=== PATIENT | male | born 1985 | race Caucasian/White ===

== ENCOUNTER → 2020-03-10 07:57 | Outpatient (BNVA) | payer OTHER, SELFPAY | PROVIDERS: Visit Provider Internal Medicine ==

== ENCOUNTER 2020-12-20 08:37 | Outpatient (REF) | payer OTHER, SELFPAY ==
[2020-12-20 09:40] LABS: Estimated Average Glucose 174 mg/dL; Hemoglobin A1c % 7.7 %
[2020-12-20 09:50] LABS: Alanine Aminotransferase 19 U/L (0-40); Albumin Level 4.6 g/dL (3.5-5.0); Alkaline Phosphatase 71 U/L (39-117); Anion Gap 10 (12-20); Aspartate Amino Transferase 25 U/L (5-37); Bilirubin Total 0.5 mg/dL (0.0-1.0); Blood Urea Nitrogen 15 mg/dL (9-16); Calcium 9.6 mg/dL (8.4-10.2); Carbon Dioxide 32 mmol/L (22-29); Chloride 103 mmol/L (96-108); Cholesterol 232 mg/dL; Creatinine Urine 179.95 mg/dL; Estimated Glomerular Filt Rate > 60; Glucose Random 135 mg/dL (60-115); HDL Cholesterol 46 mg/dL; LDL Cholesterol Calculated 165 mg/dl; Potassium 4.9 mmol/L (3.3-5.1); Sodium 140 mmol/L (135-145); Total Protein 7.2 g/dL (6.5-8.0); Triglycerides 107 mg/dL
[2020-12-20 09:53] LABS: Creatinine Urine 184.97 mg/dL; Microalbum/Creatinine Ratio Ur 2.7 ug/mg cr
[2020-12-20 10:13] LABS: Free T4 (Free Thyroxine) 0.87 ng/dL (0.71-1.85); Thyroid Stimulating Hormone 1.28 uIU/mL (0.32-4.0); Vitamin D 25-OH Total 27.7 ng/mL (>30)
[2020-12-21 09:06] LABS: LDL Cholesterol Direct 163 mg/dL (<100)
== END 2020-12-20 08:38 | disposition home or self-care (01) ==
LOC: HO.LAB 08:37
PROVIDERS: Visit Provider Internal Medicine
DX: E10.9 Type 1 diabetes mellitus without complications (principal); E55.9 Vitamin D deficiency, unspecified
CPT/HCPCS: 36415; 80053; 80061; 82043; 82306; 83036; 83721; 84439; 84443

== ENCOUNTER → 2020-12-22 14:44 | Outpatient (BNVA) | payer OTHER, SELFPAY | PROVIDERS: Visit Provider Internal Medicine | DX: E78.5 Hyperlipidemia, unspecified (principal); E10.9 Type 1 diabetes mellitus without complications; I10 Essential (primary) hypertension | CPT/HCPCS: 82947; 99212 ==

== ENCOUNTER 2021-11-07 07:42 | Outpatient (REF) | payer OTHER, SELFPAY ==
[2021-11-07 09:09] LABS: Estimated Average Glucose 177 mg/dL; Hemoglobin A1c % 7.8 %
[2021-11-07 09:14] LABS: Alanine Aminotransferase 13 U/L (0-40); Albumin Level 4.6 g/dL (3.5-5.0); Alkaline Phosphatase 66 U/L (39-117); Anion Gap 14 (12-20); Aspartate Amino Transferase 18 U/L (5-37); Bilirubin Total 0.5 mg/dL (0.0-1.0); Blood Urea Nitrogen 18 mg/dL (9-16); Calcium 9.6 mg/dL (8.4-10.2); Carbon Dioxide 28 mmol/L (22-29); Chloride 103 mmol/L (96-108); Cholesterol 184 mg/dL; Estimated Glomerular Filt Rate > 60; Glucose Random 162 mg/dL (60-115); HDL Cholesterol 40 mg/dL; LDL Cholesterol Calculated 129 mg/dl; Potassium 4.6 mmol/L (3.3-5.1); Sodium 140 mmol/L (135-145); Triglycerides 75 mg/dL
[2021-11-07 09:31] LABS: Thyroid Stimulating Hormone 1.45 uIU/mL (0.32-4.0)
[2021-11-07 09:48] LABS: Creatinine Urine 134.53 mg/dL; Microalbumin Urine < 5.0 mg/L
[2021-11-08 10:57] LABS: LDL Cholesterol Direct 125 mg/dL (<100)
[2021-11-10 22:52] LABS: Transglutaminase Ab IgG <1.0 U/mL
[2021-11-15 13:47] LABS: Endomysial IgA Antibody Negative (Negative)
== END 2021-11-07 07:43 | disposition home or self-care (01) ==
LOC: HO.LAB 07:42
PROVIDERS: Visit Provider Internal Medicine
DX: E10.9 Type 1 diabetes mellitus without complications (principal)
CPT/HCPCS: 36415; 80053; 80061; 82043; 83036; 83721; 84443; 86231; 86364

== ENCOUNTER → 2021-11-16 13:03 | Outpatient (BNVA) | payer OTHER, SELFPAY | PROVIDERS: Visit Provider Registered Nurse Diabetes Educator | DX: E10.9 Type 1 diabetes mellitus without complications (principal) | CPT/HCPCS: 99211 ==

== ENCOUNTER → 2022-05-26 14:21 | Outpatient (BNVA) | payer OTHER, SELFPAY | PROVIDERS: Visit Provider Internal Medicine | DX: E10.9 Type 1 diabetes mellitus without complications (principal); E78.5 Hyperlipidemia, unspecified; I10 Essential (primary) hypertension | CPT/HCPCS: 82947; 83036; 99212 ==

== ENCOUNTER 2022-12-13 13:41 | Outpatient (AMB) | payer OTHER, SELFPAY ==
[2022-12-13 13:43] VITALS: BP 124/68; PULSE 67; BMI 27.7
--- NOTE | 2022-12-13 13:43 | MHC.OFFVIS ---
Intake Vital Signs 12/13/22 13:43 Height 5 ft 10 in Weight 193 lb 5.526 oz BMI 27.7 BP 124/68 Blood Pressure Location Lt brachial Position Sitting Pulse 67 Pulse Source Pulse Oximeter Intake Visit Reasons: DM Intake Note: Patient present today to follow up on Type 1 Diabetes Mellitus. Patient receives DME supplies through: Pharmacy Last Diabetic Eye exam: 12/05 Last Podiatry Visit: None Random Glucose: 271mg/dl HgA1C: 7.5% Director Intelligence Analysis Programs Required: No Accompanied by: Self / Same As Patient Allergies amoxicillin Allergy (Unknown, Verified 12/13/22 13:56) swelling of mouth clavulanic acid [Augmentin] Allergy (Unknown, Verified 12/13/22 13:56) swelling of mouth HPI HPI Comments History of Present Illness Details 37 YO M with PMHx T1DM who is seen in F/U for the same. Patient last saw Dr. Espinoza on 05/26/2022 . Initially diagnosed with T1DM in 2015 when he was admitted with DKA. Current insulin regimen: Lantus 27 units, Humalog ICR 6 and ISF 50. He does admit to under bolusing himself when eating due to fear of hypoglycemia. Current has Dexcom G6. 14 days of sensor data was downloaded and interpreted from 11/30/2022 to December 13 2022. This revealed an average blood glucose of 162 with SD 61 of and GMI of 7.2 %. Patient was at goal 62% of the time, above goal 32% of the time, and below goal 3% of the time. Hyperglycemia is occurring primarily overnight with hypoglycemia occurring post-prandial He is running high consistently postprandially. He treats lows with rapid sugar. Has hypoglycemia every 2-3 days He has hypoglycemia awareness. Most recent A1C: 7.5% 05/26/2022, down from 7.8% 11/07/2021. Family history of autoimmunity in his sister who also has T1DM. Has eyes checked but not yearly, last eye exam 1 yr ago . Reports there was no retinopathy. Denies Neuropathy. No known Nephropathy, not on LUBNA/ARB, has consistently refused. UAC WNL <5 11/07/2021. Has HLD. LDL above goal at 125 11/07/2021. Has consistently refused statin. Never started his Atorvastatin. Is using OTC Red yeast rice. Denies CAD. Has completed Diabetes Education. Diet/Carb counting: Feels comfortable with carb counting. Tries to count carbs at every meal but often not accurately. Eats 3-4 meals per day. Exercises with basketball 3-4 times per week. Prior DKA 1 episode at the time of diagnosis, but never since. Has had severe hypoglycemia 2 years ago requiring hospital admission. Labs: Laboratory Tests 11/07/21 11/07/21 07:48 07:51 LDL Cholesterol Di rect 125 H Urine Microalbumin < 5.0 PFSH Medical History HLD (hyperlipidemia) HTN (hypertension) T1DM (type 1 diabetes mellitus) Vitamin D deficiency Surgical History History of mandibular surgery Family History Father HTN (hypertension) High cholesterol Mother Cancer Sister Type 1 diabetes mellitus Social History Alcohol intake: current Alcohol intake frequency: does not drink Patient Tobacco Use Status: Never used Tobacco e-Cigarette/Vaping Use: Currently Using Substance Use Type: Marijuana Physical Exam Vital Signs: Last Vital Signs Pulse 67 12/13/22 13:43 BP 124/68 12/13/22 13:43 BMI result Body Mass Index 27.7 Absence of Cushingoid features. Absence of acromegalic features. Neck exam reveals nl size thyroid about 15 gms. No thyroid nodules palpable. No carotid bruits present. Lungs CTA. Heart S1 S2, Reg R/R. No M/R/ G. Skin exam reveals absence of vitiligo or acanthosis nigricans. Abdominal exam reveals Soft NT/ND with NA BS. No organomegaly present. Neck Other: . Extrem Other: Visual exam of foot performed. No ulcerations or open lesions. No onchomycosis, no callouses.Pulses 2 + distally Sensation intact to monofilament exam. Vibratory sensation sensed is intact with 128 Hz tuning fork Results AMB Hemoglobin A1c AMB Hemoglobin A1c 7.5 % Last Edit by Sheyla Scott on 12/13/22 14:12 Results Reviewed Results Reviewed: 12/13/22 13:52 Glucose, Whole Blood Routine Laboratory Last Values Glucose (Clinic) 271 mg/dL (60-115) H 12/13/22 13:52 Assessment & Plan Assessment & Plan (1) T1DM (type 1 diabetes mellitus): Code(s): E10.9 - Type 1 diabetes mellitus without complications Qualifiers: Diabetes mellitus complication status: without complication Qualified Code(s): E10.9 - Type 1 diabetes mellitus without complications Plan: This is a 37-year-old white male with a history of type 1 diabetes being treated with basal-bolus insulin with fair glycemic control and no known microvascular or macrovascular complication. Plan is to decrease the insulin: Carbohydrate to 1:6.5 and increase the Lantus 30 units . Will have patient follow up with hospice educator to discuss pump initiation. Will check basic metabolic panel, lipid profile and microalbumin to creatinine ratio. Went over correlation of poor glycemic control to development and progression complication Orders: Orders Microalbumin, Random (w Creat) 6 Weeks E10.9 - Type 1 diabetes mellitus without complications Lipid Panel 6 Weeks E10.9 - Type 1 diabetes mellitus without complications Basic Metabolic Panel 6 Weeks E10.9 - Type 1 diabetes mellitus without complications AMB Hemoglobin A1c Today E10.9 - Type 1 diabetes mellitus without complications Medications: New atorvastatin 10 mg PO DAILY 30 tabs 5RF Refilled blood-glucose meter (FreeStyle Lite Meter kit) As directed 1 ea 0RF Coding Level of Care Code Est Pt Level 4 (28708) Diagnoses Type 1 diabetes mellitus without complication E10.9 Diabetes mellitus complication status: without complication
[2022-12-13 13:58] LABS: Glucose, Whole Blood 271 mg/dL (60-115)
== END 2022-12-13 14:24 | disposition home or self-care (01) ==
PROVIDERS: Visit Provider Internal Medicine Endocrinology, Diabetes & Metabolism
DX: E10.9 Type 1 diabetes mellitus without complications (principal)
CPT/HCPCS: 99214

== ENCOUNTER → 2022-12-13 13:41 | Outpatient (BNVA) | payer OTHER, SELFPAY | PROVIDERS: Visit Provider Internal Medicine Endocrinology, Diabetes & Metabolism | DX: E10.9 Type 1 diabetes mellitus without complications (principal) | CPT/HCPCS: 82947; 83036; 99212 ==

== ENCOUNTER 2023-04-07 09:41 | Outpatient (REF) | payer OTHER, SELFPAY ==
[2023-04-07 11:20] LABS: Anion Gap 12 (12-20); Blood Urea Nitrogen 18 mg/dL (9-16); Calcium 9.6 mg/dL (8.4-10.2); Carbon Dioxide 31 mmol/L (22-29); Chloride 103 mmol/L (96-108); Cholesterol 241 mg/dL (<200); Estimated Glomerular Filt Rate 54; Glucose Random 89 mg/dL (60-115); HDL Cholesterol 55 mg/dL (>40); LDL Cholesterol Calculated 168 mg/dL (<100); Sodium 142 mmol/L (135-145); Triglycerides 92 mg/dL (<150)
[2023-04-07 11:25] LABS: Creatinine Urine 246.24 mg/dL; Microalbum/Creatinine Ratio Ur 2.4 ug/mg cr (<30)
== END 2023-04-07 09:42 | disposition home or self-care (01) ==
LOC: HO.LAB 09:41
PROVIDERS: Visit Provider Internal Medicine Endocrinology, Diabetes & Metabolism
DX: E10.9 Type 1 diabetes mellitus without complications (principal)
CPT/HCPCS: 36415; 80048; 80061; 82043; 82570

== ENCOUNTER 2023-04-11 13:20 | Outpatient (AMB) | payer OTHER, SELFPAY ==
[2023-04-11 13:30] VITALS: BP 114/76; PULSE 84; BMI 27.9
--- NOTE | 2023-04-11 13:30 | MHC.OFFVIS ---
Intake Vital Signs 04/11/23 13:30 Height 5 ft 10 in Weight 194 lb 7.163 oz BMI 27.9 BP 114/76 Blood Pressure Location Lt brachial Position Sitting Pulse 84 Pulse Source Pulse Oximeter Intake Visit Reasons: DM-confirmed Intake Note: Patient present today to follow up on Type 1 Diabetes Mellitus. Patient receives DME supplies through: Pharmacy Last Diabetic Eye exam: 02/2022 Last Podiatry Visit: Doesn't have one. 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 Required: No Accompanied by: Self / Same As Patient Allergies amoxicillin Allergy (Unknown, Verified 12/13/22 13:56) swelling of mouth clavulanic acid [Augmentin] Allergy (Unknown, Verified 12/13/22 13:56) swelling of mouth Medication List - Last Reconciled 04/11/23 by Roger Butt MD blood sugar diagnostic (FreeStyle Lite Strips) 4x daily blood-glucose meter (FreeStyle Lite Meter kit) As directed blood-glucose sensor (Dexcom G6 Sensor device) USE DIRECTED blood-glucose transmitter (Dexcom G6 Transmitter device) As directed insulin glargine (Lantus Solostar U-100 Insulin) 21 units (0.21 mL) subcut QPM Lyumjev KwikPen U-100 Insulin (insulin lispro-aabc) 15 units (0.15 mL) subcut TID 30 days NS pen needle, diabetic As directed pen needle, diabetic (BD Ultra-Fine Micro Pen Needle) 6x daily HPI HPI Comments History of Present Illness Details 37 YO M with PMHx T1DM who is seen in F/U for the same. Patient last saw Dr. Espinoza on 05/26/2022 . Initially diagnosed with T1DM in 2016 when he was admitted with DKA. Current insulin regimen: Lantus 27 units, Humalog ICR 6.5 and ISF 50. He does admit to under bolusing himself when eating due to fear of hypoglycemia. Current has Dexcom G6. 14 days of sensor data was downloaded and interpreted from 03/29/2023 to 04/11/2023 This revealed an average blood glucose of 176 with SD 72 of and GMI of 7.5 %. Patient was at goal 56% of the time, above goal 41% of the time, and below goal 2% of the time. Hyperglycemia is occurring primarily post-prandial with hypoglycemia occurring overnight He is running high consistently postprandially. He treats lows with rapid sugar. Has hypoglycemia every 2-3 times /days in AM He has hypoglycemia awareness. Family history of autoimmunity in his sister who also has T1DM. Has eyes checked but not yearly, last eye exam last yr . Needs to make appt . Reports there was no retinopathy. Denies Neuropathy. No known Nephropathy, not on LUBNA/ARB, has consistently refused. UAC WNL <5 11/07/2021. Has HLD. LDL above goal at 125 11/07/2021. Has consistently refused statin. Never started his Atorvastatin. Is using OTC Red yeast rice. Denies CAD. Has completed Diabetes Education. Diet/Carb counting: Feels comfortable with carb counting. Tries to count carbs at every meal but often not accurately. Eats 3-4 meals per day. Exercises with basketball 3-4 times per week. Prior DKA 1 episode at the time of diagnosis, but never since. Has had severe hypoglycemia 2 years ago requiring hospital admission. Labs: Laboratory Tests 11/07/21 11/07/21 07:48 07:51 LDL Cholesterol Di rect 125 H Urine Microalbumin < 5.0 PFSH Medical History HLD (hyperlipidemia) HTN (hypertension) T1DM (type 1 diabetes mellitus) Vitamin D deficiency Surgical History History of mandibular surgery Family History Father HTN (hypertension) High cholesterol Mother Cancer Sister Type 1 diabetes mellitus Social History Alcohol intake: current Alcohol intake frequency: does not drink Patient Tobacco Use Status: Never used Tobacco e-Cigarette/Vaping Use: Currently Using Substance Use Type: Marijuana Physical Exam Vital Signs: Last Vital Signs Pulse 84 04/11/23 13:30 BP 114/76 04/11/23 13:30 BMI result Body Mass Index 27.9 Absence of Cushingoid features. Absence of acromegalic features. Neck exam reveals nl size thyroid about 15 gms. No thyroid nodules palpable. No carotid bruits present. Lungs CTA. Heart S1 S2, Reg R/R. No M/R/ G. Skin exam reveals absence of vitiligo or acanthosis nigricans. Abdominal exam reveals Soft NT/ND with NA BS. No organomegaly present. Neck Other: . Extrem Other: Visual exam of foot performed. No ulcerations or open lesions. No onchomycosis, no callouses.Pulses 2 + distally Sensation intact to monofilament exam. Vibratory sensation sensed is intact with 128 Hz tuning fork Results AMB Hemoglobin A1c AMB Hemoglobin A1c 7.9 % Last Edit by NASEEM Mathis on 04/11/23 13:49 Results Reviewed Results Reviewed: Laboratory Last Values Glucose (Clinic) 70 mg/dL (60-115) 04/11/23 13:38 Assessment & Plan Assessment & Plan (1) T1DM (type 1 diabetes mellitus): Code(s): E10.9 - Type 1 diabetes mellitus without complications Qualifiers: Diabetes mellitus complication status: without complication Qualified Code(s): E10.9 - Type 1 diabetes mellitus without complications Plan: This is a 37-year-old white male with a history of type 1 diabetes being treated with basal-bolus insulin with fair glycemic control and no known microvascular or macrovascular complication but declining renal function. Plan is to increase the insulin: Carbohydrate to 1:6.0 and decrease Lantus to 27 units consistently . Will have patient follow up with environmental educator to discuss pump initiation. Will also repeat basic metabolic panel . Went over correlation of poor glycemic control to development and progression complication (2) HLD (hyperlipidemia): Code(s): E78.5 - Hyperlipidemia, unspecified Qualifiers: Hyperlipidemia type: unspecified Qualified Code(s): E78.5 - Hyperlipidemia, unspecified Plan: Reinitiate atorvastatin and recheck lipid profile in 4-5 weeks Orders: Orders Basic Metabolic Panel 5 Weeks E10.9 - Type 1 diabetes mellitus without complications, E78.5 - Hyperlipidemia, unspecified Lipid Panel 5 Weeks E10.9 - Type 1 diabetes mellitus without complications, E78.5 - Hyperlipidemia, unspecified AMB Hemoglobin A1c Today E10.9 - Type 1 diabetes mellitus without complications, Z13.9 - Encounter for screening, unspecified Referrals Podiatry Referral E10.9 - Type 1 diabetes mellitus without complications Medications: New atorvastatin 10 mg PO BEDTIME 30 tabs 4RF Coding Level of Care Code Est Pt Level 4 (41314) Diagnoses Type 1 diabetes mellitus without complication E10.9 Diabetes mellitus complication status: without complication Hyperlipidemia, unspecified hyperlipidemia type E78.5 Hyperlipidemia type: unspecified
[2023-04-11 13:43] LABS: Glucose, Whole Blood 70 mg/dL (60-115)
== END 2023-04-11 14:06 | disposition home or self-care (01) ==
PROVIDERS: Visit Provider Internal Medicine Endocrinology, Diabetes & Metabolism
DX: Z13.9 Encounter for screening, unspecified (principal); E10.9 Type 1 diabetes mellitus without complications; E78.5 Hyperlipidemia, unspecified
CPT/HCPCS: 99214

== ENCOUNTER → 2023-04-11 13:20 | Outpatient (BNVA) | payer OTHER, SELFPAY | PROVIDERS: Visit Provider Internal Medicine Endocrinology, Diabetes & Metabolism | DX: E10.9 Type 1 diabetes mellitus without complications (principal); E78.5 Hyperlipidemia, unspecified | CPT/HCPCS: 82947; 83036; 99212 ==

== ENCOUNTER 2023-10-19 11:18 | Outpatient (AMB) | payer OTHER, SELFPAY ==
--- NOTE | 2023-10-19 07:31 | A.OFFVIS_ITS ---
Vital Signs 10/19/23 11:21 Height 5 ft 10 in Weight 191 lb 12.835 oz BMI 27.5 BP 122/82 Blood Pressure Location Rt brachial Position Sitting Pulse 82 Pulse Source Pulse Oximeter Intake Visit Reasons: T1DM/HYPERLIPIDEMIA/CONFIRMED Intake Note: Patient presents today to re-establish treatment for Type 1 Diabetes Mellitus: Last Diabetic eye exam was on: DUE, appt next month Last Podiatry exam was on: Does not see a Metal Casting Trades Worker Most recent HbA1c: 8.6%, 10/19/2023 Random Glucose- 269 mg/dL, Today Can Vacuum Tester Required: No Accompanied by: Self / Same As Patient Allergies amoxicillin Allergy (Unknown, Verified 10/19/23 11:20) swelling of mouth clavulanic acid [Augmentin] Allergy (Unknown, Verified 10/19/23 11:20) swelling of mouth HPI Comments Details: 37 YO M with PMHx T1DM who is seen in F/U for the same. Patient last saw Dr. Butt 04/11/2023 and Rachael AMAYA in 2021. He was initially diagnosed with type 1 diabetes in 2015 when he was admitted with DKA. Current diabetes regime: Lantus 27 units Humalog I:C ratio 6.5 and ISF 50. Treats lows with rapid acting sugar, has glucagon Family history of autoimmunity in his sister who also has type 1 diabetes. Mother with type 1 diabetes Last eye examination: Has not had annual He reports there was no retinopathy. Denies neuropathy. No numbness, tingling, cramping. Does not see podiatry. + nephropathy, not on Michael-I. UAC within normal limits <03/2023 eGFR 54 LDL 04/09 168, had declined testing prior to this time. Low dose statin: He did not start reports intermittently taking red rice yeast. DIet/Carb counting: feels comfortable with carb counting. Eats 3-4 meals per da y. Exercise basketball 3-4 times per week. Prior DKA 1 episode of the time of diagnosis, but never since. Has had severe hypoglycemia several years ago requiring hospital admission [facility] Medical History Vitamin D deficiency HLD (hyperlipidemia) HTN (hypertension) T1DM (type 1 diabetes mellitus) Surgical History History of mandibular surgery Family History Father HTN (hypertension) High cholesterol Mother Cancer Sister Type 1 diabetes mellitus Social History Alcohol intake: current Alcohol intake frequency: does not drink Patient Tobacco Use Status: Never used Tobacco e-Cigarette/Vaping Use: Currently Using Substance Use Type: Marijuana Physical Exam Vital Signs: Last Vital Signs Pulse 82 10/19/23 11:21 BP 122/82 10/19/23 11:21 BMI result Body Mass Index 27.5 Const Other: Absence of Cushingoid features. Absence of acromegalic features. Neck exam reveals nl size thyroid about 15 gms. No thyroid nodules palpable. Heart S1 S2, Reg R/R. No M/R G. Skin exam reveals absence of vitiligo or acanthosis nigricans. Extrem Other: Visual exam of foot performed. No ulcerations or open lesions. No onchomycosis, no callouses. No interdigit fissuring or maceration. Sensation intact to monofilament exam. Vibratory sensation is normal with 128 Hz tuning fork. Results AMB Hemoglobin A1c AMB Hemoglobin A1c 8.6 % Last Edit by NASEEM León on 10/19/23 11:44 Results Reviewed Results Reviewed: Laboratory Last Values Glucose (Clinic) 269 mg/dL (60-115) H 10/19/23 11:29 Hgb A1c (Clinic) 8.6 % (4.0-6.0) H 10/19/23 11:34 Laboratory Tests 05/02/18 12/13/22 04/07/23 13:57 14:04 09:50 Potassium 4.0 Creatinine 1.48 H Estimated GFR 54 Hgb A1c (Clinic) 7.5 H Calcium 9.6 LDL Cholesterol Direct 125 H Triglycerides 92 Cholesterol 241 H LDL Cholesterol, Calc 168 H HDL Cholesterol 55 Urine Microalbumin 6.0 04/11/23 13:41 Potassium Creatinine Estimated GFR Hgb A1c (Clinic) 7.9 H Calcium LDL Cholesterol Direct Triglycerides Cholesterol LDL Cholesterol, Calc HDL Cholesterol Urine Microalbumin Assessment & Plan Assessment & Plan (1) T1DM (type 1 diabetes mellitus): Code(s): E10.9 - Type 1 diabetes mellitus without complications Category: Medical Qualifiers: Diabetes mellitus complication status: without complication Qualified Code(s): E10.9 - Type 1 diabetes mellitus without complications Plan: Type 1 diabetic on basal bolus insulin with an A1c of 8.6% in the office today. He had recent renal function tests and EGFR is 54, LDL 168. He has agreed to start low dose statin in his interested in going on a islet beta bionics pump. In the interim we will fill a prescription for Tresiba as he was doing much better on this than he has been doing Lantus which was not lasting 24 hours for him and he is having a lot of variability in his glucose readings. He will continue to use glucose sensor. Prescriptions sent for nasal glucagon, ketone test strips, glucose tablets. He will schedule next available appointment with Rachael AMAYA to begin pre pump training. eGFR 54 patient advised to stop creatine protein supplements and will recheck kidney function and lipids in 3 months. (2) HLD (hyperlipidemia): Code(s): E78.5 - Hyperlipidemia, unspecified Category: Medical Qualifiers: Hyperlipidemia type: unspecified Qualified Code(s): E78.5 - Hyperlipidemia, unspecified Plan: As above Orders: Orders AMB Hemoglobin A1c Today E10.9 - Type 1 diabetes mellitus without complications Medications: New Tresiba FlexTouch U-200 (insulin degludec) 27 units (0.135 mL) subcut DAILY 30 days 6 mL 6RF NS E10.9 - Type 1 diabetes mellitus without complications Baqsimi 3 mg/actuation (glucagon) 3 mg intranasal .prn 30 days PRN 2 ea 1RF Unresponsive hypoglycemia MDD 6 mg NS E10.9 - Type 1 diabetes mellitus without complications acetone (urine) test (Ketone Urine Test strips) As directed glucose over 300, illness, nausea, and vomiting 25 ea 2RF E10.9 - Type 1 diabetes mellitus without complications lancets (FreeStyle Lancets) 4 times a day prn sensor failure or to confirm glucose 100 ea 1RF Refilled blood sugar diagnostic (FreeStyle Lite Strips) 4x daily 100 ea 11RF blood-glucose meter (FreeStyle Lite Meter kit) As directed 1 ea 0RF Patient Instructions: The patient was counseled to always carry a source of sugar and on the rule of 15's: Take 3 glucose tablets and repeat again in 15 minutes if blood sugar is not in normal range. Continue to repeat every 15 minutes until blood sugar is normal. Symptoms of DKA were reviewed: early: frequent urination, dry mouth, fatigue, feeling ill, severe symptoms: ketones in the urine, abdominal pain, nausea, vomiting and weakness. It is important to hydrate with sugar free liquids every 30 minutes and bring the sugars down to normal levels. The patient was counseled to achieve a target A1C of 7% (154 avg). Fasting blood sugars should be 90-130 in the morning and less than 180 two hours after meals. Reviewed the relationship between poor diabetic control and the developement of complications. The patient was counseled to wear closed toe shoes, never walk barefooted and to inspect the feet daily. For any signs of infection or open wound patient should notify PCP or go to urgent care. Coding Level of Care Code Tele Est Pt Level 4 (09713) Complex EM visit Add On G2211 Diagnoses Type 1 diabetes mellitus without complication E10.9 Diabetes mellitus complication status: without complication Hyperlipidemia, unspecified hyperlipidemia type E78.5 Hyperlipidemia type: unspecified Time Spent (min) 30 Comment Time spent reviewing labs/provider notes, face to face, chart doc
[2023-10-19 11:21] VITALS: BP 122/82; PULSE 82; BMI 27.5
[2023-10-19 11:36] LABS: Glucose, Whole Blood 269 mg/dL (60-115)
== END 2023-10-19 12:01 | disposition home or self-care (01) ==
PROVIDERS: Visit Provider Nurse Practitioner Adult Health
DX: E10.9 Type 1 diabetes mellitus without complications (principal); E78.5 Hyperlipidemia, unspecified
CPT/HCPCS: 99214; G2211

== ENCOUNTER → 2023-10-19 11:18 | Outpatient (BNVA) | payer OTHER, SELFPAY | PROVIDERS: Visit Provider Nurse Practitioner Adult Health | DX: E10.9 Type 1 diabetes mellitus without complications (principal); E78.5 Hyperlipidemia, unspecified; Z79.4 Long term (current) use of insulin | CPT/HCPCS: 82947; 83036 ==

== ENCOUNTER 2023-11-21 09:50 | Outpatient (AMB) | payer OTHER, SELFPAY ==
--- NOTE | 2023-11-21 10:37 | A.OFFVIS_ITS ---
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: No Accompanied by: Self / Same As Patient Allergies amoxicillin Allergy (Unknown, Verified 10/19/23 11:20) swelling of mouth clavulanic acid [Augmentin] Allergy (Unknown, Verified 10/19/23 11:20) swelling of mouth HPI Comprehensive Diabetes Asmnt Most Recent Diabetes Results: Microalb/Creat Ratio 2.4 ug/mg cr (<30) 04/07/23 Cholesterol 241 mg/dL (<200) H 04/07/23 HDL Cholesterol 55 mg/dL (>40) 04/07/23 Triglycerides 92 mg/dL (<150) 04/07/23 Creatinine 1.48 mg/dL (0.5-1.4) H 04/07/23 Blood Urea Nitrogen 18 mg/dL (9-16) H 04/07/23 Sodium 142 mmol/L (135-145) 04/07/23 Potassium 4.0 mmol/L (3.3-5.1) 04/07/23 Chloride 103 mmol/L (96-108) 04/07/23 Carbon Dioxide 31 mmol/L (22-29) H 04/07/23 Calcium 9.6 mg/dL (8.4-10.2) 04/07/23 [facility] Medical History Vitamin D deficiency HLD (hyperlipidemia) HTN (hypertension) T1DM (type 1 diabetes mellitus) Surgical History History of mandibular surgery Family History Father HTN (hypertension) High cholesterol Mother Cancer Sister Type 1 diabetes mellitus Social History Alcohol intake: current Alcohol intake frequency: does not drink Patient Tobacco Use Status: Never used Tobacco e-Cigarette/Vaping Use: Currently Using Substance Use Type: Marijuana Assessment & Plan Assessment & Plan (1) T1DM (type 1 diabetes mellitus): Code(s): E10.9 - Type 1 diabetes mellitus without complications Qualifiers: Diabetes mellitus complication status: without complication Qualified Code(s): E10.9 - Type 1 diabetes mellitus without complications Plan: Pump Assessment: Type of DM: Type 1 Dx at age: 30y/o Previous DKA: At Dx, none since Current Insulin Rx: MDI Patient takes insulin as prescribed: yes Patient? checks BG with Dexcom G6 Downloaded meter today: Yes Average glucose for the past 14 days 201 mg/dL Patient above target 59% At target 39% Below target 2% Patient? reports glycemic control as: fair Most recent Hgb A1C: 8.6% Frequency of low B-2 month Low BG treatment: Juice or glucose tabs Frequency of high BG: daily Does patient check Ketones? yes Has pt been on a pump in the past? no Reviewed insulin pump basics today with Patient. Explained pros and cons of insulin pumps. Showed pt various pumps, infusion sets, and cgms currently available. Reviewed need to wear pump 24/ and need to change infusion set every 3 days. Also stressed importance of frequent BG checks, 4x daily minimum or use pump that is integrated with CGM.? TDD:48 units Patient demonstrated motivation for continued insulin pump education and understands the need to complete education prior to starting insulin pump for best outcome. Reviewed with patient ketone action plan Patient would like to order the iLet Portions of this note were created using voice recognition software, please excuse any words or phrases that may have been misinterpreted. Patient Instructions: DIABETES PROBLEMS HOMECARE INSTRUCTIONS? for High Blood Sugar and When to Test for Ketones Hyperglycemia is the technical term for high blood glucose (blood sugar). High blood sugar happens when the body has too little insulin or when the body can't use insulin properly. What causes hyperglycemia? A number of things can cause hyperglycemia: * If you have type 1, you may not have given yourself enough insulin. ? If you have type 2, your body may have enough insulin, but it is not as effective as it should be. * You ate more than planned or exercised less than planned. * You have stress from an illness, such as a cold or flu. * You have other stress, such as family conflicts or school or dating problems. How to lower your blood sugar level. ? Take medications as directed by physician. ? Drink extra water or noncaffeinated, nonsugared drinks to prevented hydration. ? Exercise if you are not sick However, if your blood sugar is above 250 mg/dl, check your urine for ketones. If you have ketones, do not exercise Exercising when ketones are present may make your blood sugar level go even higher. You'll need to work with your doctor to find the safest way for you to lower your blood sugar level. Regularly check blood sugar or urine for sugar and acetone during illness. Diabetic ketoacidosis (DKA) Is serious condition that can lead to diabetic coma (passing out for a long t keyon) or even . When your cells don't get the glucose they need for energy, your body begins to burn fat for energy, which produces ketones. Ketones are chemicals that the body creates when it breaks down fat to use for energy. The body does this when it doesn?t have enough insulin to use glucose, the body?s normal source of energy. When ketones build up in the blood, they make it more acidic. They are a warning sign that your diabetes is out of control or that you are getting sick. Symptoms of Diabetic Ketoacidosis (DKA) ? DKA usually develops slowly. But when vomiting occurs, this life- threatening condition can develop in a few hours. Early symptoms include the following: ? Thirst or a very dry mouth ? Frequent urination ? High blood glucose (blood sugar) levels ? High levels of ketones in the urine ? Then, other symptoms appear: ? Constantly feeling tired ? Dry or flushed skin ? Nausea, vomiting, or abdominal pain ? (Vomiting can be caused by many illnesses, not just ketoacidosis. If vomiting continues for more than 2 hours, contact your health care provider.) ? Difficulty breathing ? Fruity odor on breath ? A hard time paying attention, or confusion When should you test for ketones? It is advisable to check for ketones under the following conditions when: Your blood glucose is higher than 250mg/dl. Feeling nauseated, throwing up, or have pains in your abdominal region. Have a cold or flu. Have general body fatigue. Feel thirsty or have a very dry mouth. Have flushed skin. Have a fruity breath or a hard time breathing. You feel perplexed or in fog. How to Test Urine for Ketones You can detect ketones with a simple urine test using a test strip, similar to a blood testing strip. Ask your health care provider when and how you should test for ketones. Many experts advise to check your urine for ketones when your blood glucose is more than 250 mg/dl. When you are ill (when you have a cold or the flu, for example), check for ketones every 4 to 6 hours. And check every 4 to 6 hours when your blood sugar is more than 250 mg/dl. Also, check for ketones when you have any symptoms of DKA. How to lower your blood sugar level. ? Take medications as directed by physician. ? Drink extra water or noncaffeinated, nonsugared drinks to prevented hydration. ? Exercise if you are not sick However, if your blood sugar is above 250 mg/dl, check your urine for ketones. If you have ketones, do not exercise Exercising when ketones are present may make your blood sugar level go even higher. You'll need to work with your doctor to find the safest way for you to lower your blood sugar level. Regularly check blood sugar or urine for sugar and acetone during illness Coding Level of Care Code Est Pt Level 1 (34989) Diagnoses Type 1 diabetes mellitus without complication E10.9 Diabetes mellitus complication status: without complication
== END 2023-11-21 10:44 | disposition home or self-care (01) ==
PROVIDERS: Visit Provider Registered Nurse Diabetes Educator
DX: E10.9 Type 1 diabetes mellitus without complications (principal)

== ENCOUNTER → 2023-11-21 09:50 | Outpatient (BNVA) | payer OTHER, SELFPAY | PROVIDERS: Visit Provider Registered Nurse Diabetes Educator | DX: E10.9 Type 1 diabetes mellitus without complications (principal); Z96.41 Presence of insulin pump (external) (internal) | CPT/HCPCS: 99211 ==

== ENCOUNTER 2023-11-22 09:51 | Outpatient (AMB) | payer OTHER, SELFPAY ==
--- NOTE | 2023-11-22 09:22 | A.OFFVIS_ITS ---
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 Patient last saw myself two weeks ago at which time he was started on Tresiba insulin and low-dose statin. He last saw Dr. Butt 04/11/2023 and Rachael AMAYA in 2021. He was initially diagnosed with type with 1 diabetes in 2016 when he was admitted with DKA. Current diabetes regime: Tresiba units 27 units Humalog 1:C ratio 6.5 ISF 50 Dexcom average glucose: 197 14 day continuous glucose monitor report reviewed Glucose Managment indicator 8 % Days with CGM data 93 % TIme in ranges: 22 % very high (above 250) 35 one % high ?(181-250) 1 % in range ?(70-180] 1 % low (69-55) [76 ] Standard Deviation Interpretation [some post prandial highs after lunch ] Treats low with:quick acting carb Family history of autoimmunity in his sister who also has type 1 diabetes. Mother with type 1 diabetes Denies retinopathy. Last eye exam: Denies neuropathy. No numbness, tingling, cramping. Does not see podiatry. + nephropathy, not on Michael-I. UAC within normal limits <2 eGFR 54 Has HLD: most recent LDL 168 2023, was started on statin in October DIet/Carb counting: feels comfortable with carb counting. Eats 3-4 meals per day. Exercise basketball 3-4 times per week. Prior DKA 1 episode of the time of diagnosis, but not since. Has had severe hypoglycemia several years ago requiring hospital admission [facility] Medical History Vitamin D deficiency HLD (hyperlipidemia) HTN (hypertension) T1DM (type 1 diabetes mellitus) Surgical History History of mandibular surgery Family History Father HTN (hypertension) High cholesterol Mother Cancer Sister Type 1 diabetes mellitus Social History Alcohol intake: current Alcohol intake frequency: does not drink Patient Tobacco Use Status: Never used Tobacco e-Cigarette/Vaping Use: Currently Using Substance Use Type: Marijuana Physical Exam Vital Signs: Last Vital Signs Pulse 99 11/22/23 10:02 BP 116/72 11/22/23 10:02 BMI result Body Mass Index 27.2 Const Other: Absence of Cushingoid features. Absence of acromegalic features. Neck exam reveals nl size thyroid about 15 gms. No thyroid nodules palpable. No carotid bruits present. Lungs CTA. Heart S1 S2, Reg R/R. No M/R G. Skin exam reveals absence of vitiligo or acanthosis nigricans. No edema Visual exam of foot performed. No ulcerations or open lesions. No inter digit maceration or fissuring. No onychomycosis, no callouses. Sensation intact to monofilament exam. Vibratory sensation is normal with 128 Hz tuning fork. Office Procedures Glucose Monitoring Details Details: see hpi 09333 - Glucose monitoring, continuous-physician I&R Procedure code (CPT) selection complete Results Reviewed Results Reviewed: Laboratory Last Values Glucose (Clinic) 201 mg/dL (60-115) H 11/22/23 10:04 Assessment & Plan Assessment & Plan (1) T1DM (type 1 diabetes mellitus): Code(s): E10.9 - Type 1 diabetes mellitus without complications Category: Medical Qualifiers: Diabetes mellitus complication status: without complication Qualified Code(s): E10.9 - Type 1 diabetes mellitus without complications Plan: Type 1 diabetic on basal bolus insulin with an A1c of 8.6% on 10/19/23 at which time he was changed to Tresiba. He is now on a statin for HLD. He will proceed to islet pump training after he is approved. IN the iterim, he will add a unit to his lunch dosing The patient had an opportunity to ask questions regarding treatment plan. The patient expressed understanding and agreement with the above treatment plan. The patient is aware they should contact our office by phone for worsening glucose readings or for any low blood sugars which may warrant a change in diabetes medication. Compliance is encouraged with any medications and followup testing that is ordered Orders: Orders AMB Glucose Monitoring Today E10.9 - Type 1 diabetes mellitus without complications Medications: Refilled blood-glucose meter (FreeStyle Lite Meter kit) As directed 1 ea 0RF Patient Instructions: Symptoms of DKA were reviewed: early: frequent urination, dry mouth, fatigue, feeling ill, severe symptoms: ketones in the urine, abdominal pain, nausea, vomiting and weakness. It is important to hydrate with sugar free liquids every 30 minutes and bring the sugars down to normal levels. He was advised he would need to closely follow his sugar when he is on the insulin pump and follow the ketone protocol which will be reviewed in depth when he does his training Importance of always having a glucometer in the event he has a sensor failure pa rticularly once he is on an insulin pump. He was advised the islet we will only operate for 48 hours during the 1st week 72 hours afterwards if there is a sensor failure if he tests and enters his blood sugar every 4 hours. Coding Level of Care Code Est Pt Level 4 (75697) Diagnoses Type 1 diabetes mellitus without complication E10.9 Diabetes mellitus complication status: without complication CPT Codes Details - CPT: 53117 - Glucose monitoring, continuous-physician I&R ([id number])
[2023-11-22 10:02] VITALS: BP 116/72; PULSE 99; BMI 27.2
[2023-11-22 10:08] LABS: Glucose, Whole Blood 201 mg/dL (60-115)
== END 2023-11-22 10:31 | disposition home or self-care (01) ==
PROVIDERS: Visit Provider Nurse Practitioner Adult Health
DX: E10.9 Type 1 diabetes mellitus without complications (principal)
CPT/HCPCS: 95251; 99214

== ENCOUNTER → 2023-11-22 09:51 | Outpatient (BNVA) | payer OTHER, SELFPAY | PROVIDERS: Visit Provider Nurse Practitioner Adult Health | DX: E10.9 Type 1 diabetes mellitus without complications (principal); Z79.4 Long term (current) use of insulin | CPT/HCPCS: 82947; 99212 ==

== ENCOUNTER 2024-04-03 09:21 | Outpatient (AMB) | payer OTHER, SELFPAY ==
--- NOTE | 2024-03-30 10:07 | A.OFFVIS_ITS ---
Vital Signs 04/03/24 09:25 Weight 201 lb 0.985 oz BP 128/76 Blood Pressure Location Rt brachial Position Sitting Pulse 59 Pulse Source Pulse Oximeter Pulse Oximetry (%) 98 Oxygen Delivery Method Room Air Intake Visit Reasons: Dm Intake Note: Patient present today for Type 1 Diabetes Mellitus Last Diabetic eye exam: 2022 Last Podiatry Visit: Doesn't have one Random Glucose:179 mg/dl HgA1C: 8.1% Baseball Sewer Hand Required: No Accompanied by: Self / Same As Patient Allergies amoxicillin Allergy (Unknown, Verified 04/03/24 09:28) swelling of mouth clavulanic acid [Augmentin] Allergy (Unknown, Verified 04/03/24 09:28) swelling of mouth Medication List - Last Reconciled 04/03/24 by Jazzy Becker NP acetone (urine) test (Ketone Urine Test strips) As directed glucose over 300, illness, nausea, and vomiting atorvastatin 10 mg PO BEDTIME 90 days Baqsimi 3 mg/actuation (glucagon) 3 mg intranasal .prn PRN 30 days MDD 6 mg NS blood sugar diagnostic (FreeStyle Lite Strips) 4x daily prn if sensor not av ailable or to confirm readings blood-glucose meter (FreeStyle Lite Meter kit) As directed blood-glucose sensor (Leapset G7 Sensor device) As directed every ten days insulin glargine (Basaglar KwikPen U-100 Insulin) 27 units (0.27 mL) subcut DAILY PRN 30 days MDD 27 units insulin lispro-aabc (Lyumjev U-100 Insulin) up to 75 units via pump daily subcutaneously use as directed; 30 days insulin lispro-aabc 9 units (0.09 mL) subcut TID 30 days lancets (FreeStyle Lancets) 4 times a day prn sensor failure or to confirm glucose pen needle, diabetic As directed pen needle, diabetic (BD Ultra-Fine Micro Pen Needle) 6x daily pen needle, diabetic (BD Chapis 2nd Gen Pen Needle) qid HPI Comments Details: 38 YO M with PMHx T1DM who is seen in F/U for the same. Patient last seen 12/07 at which time he was started on Tresiba insulin and low-dose statin. Short acting insuln was increased by 1 units for lunch. He was initially diagnosed with type with 1 diabetes in 2015 when he was admitted with DKA. Current diabetes regime: Tresiba units 27 units Humalog 1:C ratio 6.5 ISF 50 He is using the same ratio/ correction factor but at times as been over correcting leading to lows in the am, undercorrecting in the evening when he has been doing some emotional eating secondary to a depression related to a bad breakup. HE feels he is doing better emotionally but would like to hold off on a pump for now. He ran out of sensors due to an insurance change from medicaid based [employer] to [employer]. Dexcom average glucose: 184 14 day continuous glucose monitor report reviewed Down from previous of 197 Glucose Managment indicator 7.7 % down load was from mid january TIme in ranges: 15 % very high (above 250) Thirty-one % high ?(181-250) 50 % in range ?(70-180] 1 % low (69-55) Less than 1 % ?very low (below 54) Coefficient of variation 33.4 desired less than 36 Interpretation: He has fat having a few scattered lows at 09:00 and 12:00 in range throughout the day and starts to rise at 16:00 Treats lows with :quick acting carb Family history of autoimmunity in his sister who also has type 1 diabetes. Mother with type 1 diabetes Denies retinopathy. Last eye exam: Denies neuropathy. No numbness, tingling, cramping. Does not see podiatry. + nephropathy, not on Michael-I. UAC within normal limits <03/2023 eGFR 54 Has HLD: most recent LDL 168 2023, was started on statin in October 2023 and he has been regularly taking this. DIet/Carb counting: feels comfortable with carb counting. Eats 3-4 meals per day. Exercise basketball 3-4 times per week. Prior DKA 1 episode of the time of diagnosis, but not since. Has had severe hypoglycemia several years ago requiring hospital admission [facility] Medical History Vitamin D deficiency HLD (hyperlipidemia) HTN (hypertension) T1DM (type 1 diabetes mellitus) Surgical History History of mandibular surgery Family History Father HTN (hypertension) High cholesterol Mother Cancer Sister Type 1 diabetes mellitus Social History Alcohol intake: current Alcohol intake frequency: does not drink Patient Tobacco Use Status: Never used Tobacco e-Cigarette/Vaping Use: Currently Using Substance Use Type: Marijuana Physical Exam Vital Signs: Last Vital Signs Pulse 59 04/03/24 09:25 BP 128/76 04/03/24 09:25 Pulse Ox 98 04/03/24 09:25 Oxygen Delivery Method Room Air 04/03/24 09:25 Const Other: Absence of Cushingoid features. Absence of acromegalic features. Neck exam reveals nl size thyroid about 15 gms. No thyroid nodules palpable. Heart S1 S2, Reg R/R. No M/R G. Skin exam reveals absence of vitiligo or acanthosis nigricans. Visual exam of foot performed. No ulcerations or open lesions. No inter digit maceration or fissuring. No onychomycosis, mild callouses small toe, smooth. Sensation intact to monofilament exam. Vibratory sensation is normal with 128 Hz tuning fork. Results AMB Hemoglobin A1c AMB Hemoglobin A1c 8.1 % Last Edit by NASEEM Mathis on 04/03/24 09:40 Results Reviewed Results Reviewed: Laboratory Last Values Glucose (Clinic) 179 mg/dL (60-115) H 04/03/24 09:30 Assessment & Plan Assessment & Plan (1) T1DM (type 1 diabetes mellitus): Code(s): E10.9 - Type 1 diabetes mellitus without complications Category: Medical Qualifiers: Diabetes mellitus complication status: without complication Qualified Code(s): E10.9 - Type 1 diabetes mellitus without complications Plan: See below Plan 38-year-old type 1 diabetic with nephropathy EGFR 56 on basal bolus insulin. Continue current dose of insulin with more attention to following insulin to carb ratio and correction factor. The patient had an opportunity to ask questions regarding treatment plan. The patient expressed understanding and agreement with the above treatment plan. The patient is aware they should contact our office by phone for worsening glucose readings or for any low blood sugars which may warrant a change in diabetes medication. Compliance is encouraged with medications and any followup testing/consults which may have been ordered. Orders: Orders AMB Hemoglobin A1c Today E10.9 - Type 1 diabetes mellitus without complications, Z13.9 - Encounter for screening, unspecified Medications: New blood-glucose sensor (Dexcom G7 Sensor device) As directed every ten days 3 ea 11RF blood-glucose sensor (Dexcom G7 Sensor device) As directed every ten days 3 ea 11RF pen needle, diabetic (BD Chapis 2nd Gen Pen Needle) qid 400 ea 3RF E10.9 - Type 1 diabetes mellitus without complications insulin lispro-aabc 9 units (0.09 mL) subcut TID 30 days 8.1 mL 3RF Changed From blood sugar diagnostic (FreeStyle Lite Strips) 4x daily 100 ea 11RF E10.9 - Type 1 diabetes mellitus without complications To blood sugar diagnostic (FreeStyle Lite Strips) 4x daily prn if sensor not available or to confirm readings 100 ea 11RF E10.9 - Type 1 diabetes mellitus without complications Refilled blood-glucose meter (FreeStyle Lite Meter kit) As directed 1 ea 0RF lancets (FreeStyle Lancets) 4 times a day prn sensor failure or to confirm glucose 100 ea 1RF Discontinued blood-glucose transmitter (Dexcom G6 Transmitter device) Discontinued Reason: Doctor's Order As directed 1 ea 1RF blood-glucose sensor (Dexcom G6 Sensor device) Discontinued Reason: Doctor's Order USE DIRECTED 3 ea 4RF On Hold insulin lispro-aabc (Lyumjev U-100 Insulin) Hold Comment: Doctor's Order up to 75 units via pump daily subcutaneously use as directed; 30 days 30 mL 11RF Patient Instructions: The patient was counseled to achieve a target A1C of 7% (154 avg). Fasting blood sugars should be 90-130 in the morning and less than 180 two hours after meals. Reviewed the relationship between poor diabetic control and the development of complications. Take 15 carb carbohydrate grams to treat a low sugar (3-4 glucose tablets, half a glass of juice or 15 carbohydrate grams of soft candy such as gummie snacks). Recheck your sugar in 15 minutes and re-treat again with 15 carbohydrate grams if low or still with symptoms. Do not drive a car or operate machinery if you do not know what your blood sugar is, if it is low or in excess of 300. Symptoms of DKA (diabetic ketoacidosis): early: frequent urination, dry mouth, fatigue, feeling ill, severe symptoms: ketones in the urine, abdominal pain, nausea, vomiting and weakness. It is important to hydrate with sugar free liquids every 15-30 minutes and bring the sugars down to normal levels. If you are moderate or severe with ketones or unable to bring glucose to less than 200, go to the emergency room. Coding Level of Care Code Est Pt Level 5 (00637) Complex EM visit Add On G2211 Diagnoses Type 1 diabetes mellitus without complication E10.9 Diabetes mellitus complication status: without complication Time Spent (min) 50 Comment Time spent reviewing labs/provider notes, face to face, chart doc
[2024-04-03 09:25] VITALS: BP 128/76; PULSE 59; O2SAT 98
[2024-04-03 09:34] LABS: Glucose, Whole Blood 179 mg/dL (60-115)
--- OUTSIDE RECORDS SUMMARY | 2024-04-03 10:08 | XMS_ITS | Clinical Summary ---
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 Name Role Phone Unavailable Primary Care Provider Unavailabl e Social History Tobacco Use Types Packs/Day Years Used Date Smoking Tobacco: Never Assessed Sex and Gender Information Value Date Recorded Sex Assigned at Not on file Legal Sex Male 9:22 AM EST Gender Identity Not on file Sexual Orientation Not on file Plan of Treatment Health Maintenance Due Date Last Done Comments DTaP,Tdap,and Td Vaccines (1 - Tdap) 11/09/2006 Hepatitis B Vaccines (1 of 3 - 19+ 3-dose series) 11/09/2006 COVID-19 Vaccine (2023-2 5 season) 2023 Influenza Vaccine (#1) 2023 HIB Vaccines Aged Out No longer eligi ble based on patient's age to complete this topic HPV Vaccines Aged Out No longer eligi ble based on patient's age to complete this topic Hepatitis A Vaccines Aged Out No long er eligible based on patient's age to complete this topic IPV Vaccines Aged Out No longer eligi ble based on patient's age to complete this topic MMR Vaccines Aged Out No longer eligi ble based on patient's age to complete this topic Meningococcal ACWY Vaccine Aged Out N o longer eligible based on patient's age to complete this topic Meningococcal B Vacine Aged Out No lo nger eligible based on patient's age to complete this topic Pneumococcal Vaccine: Pediat rics (0 to 5 Years) and At-Risk Patients (6 to 64 Years) Aged Out No longer eligible b ased on patient's age to complete this topic RSV Immunization Patients Un anmol 20 months Aged Out No longer eligible b ased on patient's age to complete this topic Varicella Vaccines Aged Out No longer eligible based on patient's age to complete this topic
== END 2024-04-03 09:50 | disposition home or self-care (01) ==
PROVIDERS: Visit Provider Nurse Practitioner Adult Health
DX: E10.9 Type 1 diabetes mellitus without complications (principal); Z13.9 Encounter for screening, unspecified
CPT/HCPCS: 99215; G2211

== ENCOUNTER → 2024-04-03 09:21 | Outpatient (BNVA) | payer OTHER, SELFPAY | PROVIDERS: Visit Provider Nurse Practitioner Adult Health | DX: E10.9 Type 1 diabetes mellitus without complications (principal) | CPT/HCPCS: 82947; 83036; 99212 ==

== ENCOUNTER 2024-08-23 10:10 | Outpatient (AMB) | payer OTHER, SELFPAY ==
--- NOTE | 2024-08-23 10:18 | MHC.OFFVIS ---
Vital Signs 08/23/24 10:22 Height 5 ft 10 in Weight 189 lb 9.561 oz BMI 27.2 BP 124/72 Blood Pressure Location Rt brachial Position Sitting Pulse 84 Pulse Source Pulse Oximeter Pulse Oximetry (%) 97 Oxygen Delivery Method Room Air Intake Visit Reasons: Type 1 DM Intake Note: Patient present today to follow up on Type 1 Diabetes Mellitus. Last Diabetic Eye exam: approx 1-2 years ago. Last Podiatry Visit: Does not see a Technical Support Consultant Random Glucose: 346 mg/dl HgA1C: 7.8% 08/24/2023 Exhaust Machine Operator Required: No Accompanied by: Self / Same As Patient Allergies amoxicillin Allergy (Unknown, Verified 08/23/24 10:22) swelling of mouth clavulanic acid (Augmentin) Allergy (Unknown, Verified 08/23/24 10:22) swelling of mouth Medication List - Last Reconciled 08/23/24 by Roger Butt MD acetone (urine) test (Ketone Urine Test strips) As directed glucose over 300, illness, nausea, and vomiting atorvastatin 10 mg PO BEDTIME 90 days Baqsimi 3 mg/actuation (glucagon) 3 mg intranasal .prn PRN 30 days MDD 6 mg NS blood sugar diagnostic (FreeStyle Lite Strips) 4x daily prn if sensor not available or to confirm readings blood-glucose meter (FreeStyle Lite Meter kit) As directed blood-glucose sensor ([employer] G7 Sensor device) As directed every ten days insulin glargine (Basaglar KwikPen U-100 Insulin) 27 units (0.27 mL) subcut DAILY PRN 30 days MDD 27 units insulin lispro-aabc (Lyumjev KwikPen U-100 Insulin) 9 - 11 units (0.09 - 0.11 mL) subcut TID 90 days insulin syringe-needle U-100 (BD Insulin Syringe Ultra-Fine) tid lancets (FreeStyle Lancets) 4 times a day prn sensor failure or to confirm glucose pen needle, diabetic As directed pen needle, diabetic (BD Ultra-Fine Micro Pen Needle) 6x daily pen needle, diabetic (BD Chapis 2nd Gen Pen Needle) qid HPI Comments Details: 38 YO M with PMHx T1DM who is seen in F/U for the same. Patient last seen 03/30/24 by Jazzy Narayanan NP Short acting insuln was increased by 1 units for lunch. He was initially diagnosed with type with 1 diabetes in 2015 when he was admitted with DKA. Current diabetes regime: Tresiba units 27 units Lyumjev 1:C ratio 6.5 ISF 50 Unfortunately, patient is not using a sensor but a f glucometer which is not downloadable. 14 day average 197 90 day average 166 Family history of autoimmunity in his sister who also has type 1 diabetes. Mother with type 1 diabetes Denies retinopathy. Last eye exam: 1 1/2 yrs ago - needs to make appt Denies neuropathy. No numbness, tingling, cramping. Does not see podiatry. + nephropathy, not on Michael-I. UAC within normal limits <03/2023 eGFR 54 Has HLD: most recent LDL 168 2023, was started on statin in October 2023 and he has been regularly taking this. DIet/Carb counting: feels comfortable with carb counting. Eats 3-4 meals per day. Exercise basketball 3-4 times per week. Prior DKA 1 episode of the time of diagnosis, but not since. had severe hypoglycemia once a wk [facility] Medical History Vitamin D deficiency HLD (hyperlipidemia) HTN (hypertension) T1DM (type 1 diabetes mellitus) Surgical History History of mandibular surgery Family History Father HTN (hypertension) High cholesterol Mother Cancer Sister Type 1 diabetes mellitus Social History Alcohol intake: current Alcohol intake frequency: does not drink Patient Tobacco Use Status: Never used Tobacco e-Cigarette/Vaping Use: Currently Using Substance Use Type: Marijuana Physical Exam Vital Signs: BMI result Body Mass Index 27.2 Absence of Cushingoid features. Absence of acromegalic features. Neck exam reveals nl size thyroid about 15 gms. No thyroid nodules palpable. No carotid bruits present. Lungs CTA. Heart S1 S2, Reg R/R. No M/R/ G. Skin exam reveals absence of vitiligo or acanthosis nigricans. Abdominal exam reveals Soft NT/ND with NA BS. No organomegaly present. Neck Other: . Extrem Other: Visual exam of foot performed. No ulcerations or open lesions. No onchomycosis, no callouses.Pulses 2 + distally Sensation intact to monofilament exam. Vibratory sensation sensed is intact with 128 Hz tuning fork Results AMB Hemoglobin A1c AMB Hemoglobin A1c 7.8 % Last Edit by NASEEM Aranda on 08/23/24 10:42 Results Reviewed Results Reviewed: Laboratory Last Values Glucose (Clinic) 346 mg/dL (60-115) H 08/23/24 10:31 Hgb A1c (Clinic) 7.8 % (4.0-6.0) H 08/23/24 10:40 Assessment & Plan Assessment & Plan (1) T1DM (type 1 diabetes mellitus): Code(s): E10.9 - Type 1 diabetes mellitus without complications Category: Medical Qualifiers: Diabetes mellitus complication status: without complication Qualified Code(s): E10.9 - Type 1 diabetes mellitus without complications Plan: This is a 38-year-old white male with a history of type 1 diabetes being treated with basal-bolus insulin with glycemic control and no known microvascular or macrovascular complication but declining renal function. Plan is to reinitiate the sensor . Will have patient follow up with personal development educator to discuss pump iLet initiation. Will also repeat basic metabolic panel, lipid profile and microalbumin to creatinine ratio . Went over correlation of poor glycemic control to development and progression complication Orders: Orders Microalbumin, Random (w Creat) 2 Months E10.9 - Type 1 diabetes mellitus without complications AMB Hemoglobin A1c Today E10.9 - Type 1 diabetes mellitus without complications Basic Metabolic Panel Today E10.9 - Type 1 diabetes mellitus without complications Lipid Panel 2 Months E10.9 - Type 1 diabetes mellitus without complications Medications: New blood-glucose sensor (FreeStyle Ted 3 Plus Sensor device) As directed change every 14 days 2 ea 5RF Refilled atorvastatin 10 mg PO BEDTIME 90 tabs 1RF 90 days insulin glargine (Basaglar KwikPen U-100 Insulin) 27 units (0.27 mL) subcut DAILY PRN 6 mL 2RF pump failure 30 days MDD 27 units Discontinued blood-glucose sensor (Dexcom G7 Sensor device) Discontinued Reason: Doctor's Order As directed every ten days 3 ea 11RF Coding Level of Care Code Est Pt Level 4 (36599) Diagnoses Type 1 diabetes mellitus without complication E10.9 Diabetes mellitus complication status: without complication
[2024-08-23 10:22] VITALS: BP 124/72; PULSE 84; O2SAT 97; BMI 27.2
[2024-08-23 10:36] LABS: Glucose, Whole Blood 346 mg/dL (60-115)
--- OUTSIDE RECORDS SUMMARY | 2024-08-23 10:49 | XMS_ITS | Clinical Summary ---
Author Organization [facility] ity Address [address] [place] [address] Care Team Providers Care Hedis Coordinator Name Role Phone Unavailable Primary Care Provider [...] - 19+ 3-dose series) 11/09/2006 COVID-19 Vaccine ( - 2023-2 5 season) 2023 Influenza Vaccine (#1) 2024 HIB Vaccines Aged Out No longer eligi [...] age to complete this topic Meningococcal B Vaccine Aged Out No l onger eligible based on patient's age to complete this topic Pneumococcal Vaccine: Pediat rics (0 to 5 Years) and At-Risk Patients (6 to 49 Years) Aged Out No longer eligible b ased on patient's age to complete this topic RSV Immunization Patients Un anmol 20 months Aged Out No longer eligible b ased on patient's age to complete this topic Varicella Vaccines Aged Out No longer eligible based on patient's age to complete this topic
== END 2024-08-23 11:12 | disposition home or self-care (01) ==
LOC: HO.ENCR 10:11
PROVIDERS: Visit Provider Internal Medicine Endocrinology, Diabetes & Metabolism
DX: E10.9 Type 1 diabetes mellitus without complications (principal)
CPT/HCPCS: 99214

== ENCOUNTER → 2024-08-23 10:10 | Outpatient (BNVA) | payer OTHER, SELFPAY | PROVIDERS: Visit Provider Internal Medicine Endocrinology, Diabetes & Metabolism | DX: E10.9 Type 1 diabetes mellitus without complications (principal) | CPT/HCPCS: 82947; 83036; 99212 ==